=== PATIENT | male | born 1950 | race Caucasian/White ===

== ENCOUNTER 2019-11-25 19:33 | Inpatient (IN) | payer OTHER, MEDICAID ==
[~2019-11-25] VITALS: Ht 182.9 cm; Wt 95.0 kg
[2019-11-25 19:33] VITALS: BP_SYST 118
--- NOTE | 2019-11-25 19:48 | NUR ---
Patient to ER bed 8 to gown for evaluation. Side rails up.
--- NOTE | 2019-11-25 19:55 | NUR ---
Dr. Prince bedside for pt eval
[2019-11-25] MEDS ORDERED: ATOR10TA68 PO (19:59)
--- NOTE | 2019-11-25 19:59 | NUR ---
Pt passed jello swallow eval at bedside with Dr. Niki hall
[2019-11-25] MEDS ORDERED: ESCI10TA PO (20:00)
[2019-11-25] MEDS ORDERED: CARB200T2 PO (20:00)
[2019-11-25] MEDS ORDERED: LACT10SO6 PO (20:01)
--- NOTE | 2019-11-25 20:01 | NUR ---
Pt BIBA from [facility] to ED C/O increased ammonia levels, recorded at 93 at the facility. Patient does not know why he is here. VSS no s/s of acute distress Resting on gurney rails up
[2019-11-25] MEDS ORDERED: LEVE500T53 PO (20:02)
[2019-11-25] MEDS ORDERED: LOSA50TA3 PO (20:02)
[2019-11-25] MEDS ORDERED: PHEN100C4 PO (20:03)
[2019-11-25] MEDS ORDERED: THIA100T73 PO (20:04)
[2019-11-25] MEDS ORDERED: OLAN5TAB3 PO (20:04)
[2019-11-25 20:17] LABS: BASOPHILS # (AUTO) 0.1 K/uL (0.0-0.2); BASOPHILS % (AUTO) 0.5 % (0.0-2.0); EOSINOPHILS # (AUTO) 0.1 K/uL (0.0-0.4); EOSINOPHILS % (AUTO) 0.7 % (0.0-4.0); HEMATOCRIT 35.6 % (36-48); HEMOGLOBIN 12.1 g/dL (12.0-16.0); MEAN CORPUSCULAR HEMOGLOBIN 31 pg (27-31); MEAN CORPUSCULAR HGB CONC 34 % (32-36); MEAN CORPUSCULAR VOLUME 90 fL (79.0-98.0); MONOCYTES # (AUTO) 1.1 K/uL (0.0-1.0); MONOCYTES % (AUTO) 10.3 % (1.7-9.3); NEUTROPHILS # (AUTO) 8.6 K/uL (1.8-7.7); NEUTROPHILS % (AUTO) 79.5 % (40.0-70.0); PLATELET COUNT (AUTO) 262 K/uL (130-430); RED BLOOD CELL COUNT(AUTO) 3.95 MIL/uL (4.2-6.2); RED CELL DISTRIBUTION WIDTH 13.2 % (9.0-15.0); WHITE BLOOD COUNT (AUTO) 10.8 K/uL (4.8-10.8)
[2019-11-25 20:35] LABS: BILIRUBIN,URINE 1+ (NEGATIVE); CLARITY/URINE CLOUDY (CLEAR); COLOR,URINE YELLOW (YELLOW); GLUCOSE,URINE NEGATIVE (NEGATIVE); KETONES,URINE NEGATIVE (NEGATIVE); LEUKOCYTE ESTERASE ,URINE 3+ (NEGATIVE); NITRITE, URINE NEGATIVE (NEGATIVE); PROTEIN URINE NEGATIVE (NEGATIVE)
[2019-11-25 20:35] LABS: ANION GAP 7 (5-15); CALCIUM 8.3 mg/dL (8.4-11.0); CHLORIDE 95 mmol/L (98-107); GLUCOSE 127 mg/dL (70-99); POTASSIUM 3.9 mmol/L (3.5-5.1); SODIUM SERUM 128 mmol/L (136-145); UREA NITROGEN, BLOOD 13 mg/dL (8-21)
[2019-11-25 20:38] LABS: PROTHROMBIN TIME 10.3 SECS (9.5-12.5)
[2019-11-25 20:39] LABS: GFR AFRICAN AMERICAN 107 mL/min (>90)
[2019-11-25 20:47] LABS: BARBITURATE, URINE POSITIVE (NEG <=200); BENZODIAZEPINE, URINE NEGATIVE (NEG <=150); CANNABINOID, URINE NEGATIVE (NEG <=50); COCAINE, URINE NEGATIVE (NEG <=150); METHAMPHETAMINES SCREEN,URINE NEGATIVE (NEG <=500); OPIATE, URINE NEGATIVE (NEG <=100); PHENCYCLIDINE SCREEN,URINE NEGATIVE (NEG <=25); UR TRICYCLIC ANTIDEPRESSANTS NEGATIVE (NEG <=300); URINE AMPHETAMINE NEGATIVE (NEG <=500); URINE METHADONE NEGATIVE (NEG <=200); URINE OXYCODONE SCREEN NEGATIVE (NEG <=100); URINE PROPOXYPHENE SCREEN NEGATIVE (NEG <=300)
--- NOTE | 2019-11-25 20:50 | NUR ---
Dr. Prince bedside for pt update on abnormal labs
[2019-11-25 20:51] LABS: BLOOD, URINE TRACE (NEGATIVE)
[2019-11-25 20:53] LABS: ALANINE AMINOTRANSFERASE 19 U/L (12-78); ALBUMIN 3.1 g/dL (3.4-4.8); ASPARTATE AMINOTRANSFERASE 14 U/L (10-37); FREE T4 (FREE THYROXINE) 0.8 ng/dl (0.8-1.5); THYROID STIMULATING HORMONE 1.48 uIu/mL (0.36-3.74); TOTAL BILIRUBIN 0.2 mg/dL (0.0-1.0)
[2019-11-25 20:56] LABS: BACTERIA,URINE MANY /HPF (None Seen); RBC,URINE 0-3 /HPF (0-3); WBC,URINE >100 /HPF (0-3)
[2019-11-25 21:00] LABS: ALCOHOL, BLOOD < 3 mg/dL (<10)
[2019-11-25] MEDS ORDERED: [UNRECOGNIZED DRUG - CODE] PO (21:42)
[2019-11-25] MEDS ORDERED: cefTRIAXone 1 GM IVPB PREMIX 50 ML IV ONE (21:45)
--- NOTE | 2019-11-25 22:02 | NUR ---
VSS no s/s of acute distress Resting on gurney rails up
--- NOTE | 2019-11-25 22:59 | NUR ---
IV Med therapy well tolerated
[2019-11-25 23:55] VITALS: BP_SYST 149
--- NOTE | 2019-11-25 23:55 | NUR ---
Patient will be admitted to care of Dr. Johnson. Admitted to Tele unit. Will go to room 118A. Belongings list completed. Complete and up to date summary report printed. SBAR report to be given at bedside with opportunity for questions.
--- NOTE | 2019-11-25 23:55 | NUR ---
ADMISSION NOTE Received patient from ER via gurney. Patient admitted with diagnosis of . Patient is awake, alert, oriented X 1. Patient oriented to hospital room, call light, toileting, pain management and safety-teach back done. Patient informed that OTTO will be HIS nurse and that their room number is 118A. Personal belongings checked and Belongings List documented. Call light within reach.
--- NOTE | 2019-11-25 23:55 | NUR ---
Transfer to Telemetry via ACLS protocol. Licensed nurse present. IV present no signs or symptoms of infiltration.
--- NOTE | 2019-11-26 | NUR ---
Opening notes Patient is resting in bed. No signs of distress noted. Breathing even and unlabored. IV patent and intact, saline locked. Patient refuses to take regular clothes and shoes off. Unable to provide full skin assessment, due to patient refusing. Oriented patient to room and call light. Call light with the patient, safety precautions in place.
--- NOTE | 2019-11-26 02:00 | NUR ---
Resting Patient is resting in bed, no signs of distress noted. Breathing even and unlabored. Patient spits over side rails. Oriented patient to not do that and spit in provided emesis bag. Patient continues to spit over railing and onto the floor. Chucks was placed in the floor. Call light with the patient. Safety precautions in place.
--- NOTE | 2019-11-26 04:30 | NUR ---
IV removed by patient. Catheter tip intact and discarded. Patient refusing to have IV reinserted. Patient also removed telemetry box and refusing to have it replaced. Will attempt to reinsert/replace at later time. No signs of distress noted. Breathing even and unlabored. Call light with the patient. Safety precautions in place.
[2019-11-26] MEDS: NORMAL SALINE 5 ML DISP.SYRIN IVF SCH ×3 (06:00→22:00)
--- NOTE | 2019-11-26 06:50 | NUR ---
Closing notes Patient resting in bed. No signs of distress noted. Breathing even and unlabored. Patient still refusing IV. Hygiene care provided and patient changed into hospital gown and telemetry leads placed. All needs met throughout the shift. Call light with the patient. Safety precautions in place. Will endorse care to day shift RN.
[2019-11-26 07:11] LABS: BASOPHILS % (AUTO) 0.4 % (0.0-2.0); EOSINOPHILS # (AUTO) 0.1 K/uL (0.0-0.4); EOSINOPHILS % (AUTO) 0.9 % (0.0-4.0); HEMATOCRIT 38.1 % (36-54); HEMOGLOBIN 12.9 g/dL (14.0-18.0); LYMPHOCYTES # (AUTO) 1.2 K/uL (1.0-5.5); LYMPHOCYTES % (AUTO) 10.3 % (20.5-51.5); MEAN CORPUSCULAR HEMOGLOBIN 31 pg (27-31); MEAN CORPUSCULAR HGB CONC 34 % (32-36); MEAN CORPUSCULAR VOLUME 90 fL (79.0-98.0); MONOCYTES # (AUTO) 1.4 K/uL (0.0-1.0); MONOCYTES % (AUTO) 11.8 % (1.7-9.3); NEUTROPHILS # (AUTO) 8.9 K/uL (1.8-7.7); NEUTROPHILS % (AUTO) 76.6 % (40.0-70.0); PLATELET COUNT (AUTO) 276 K/uL (130-430); RED BLOOD CELL COUNT(AUTO) 4.22 MIL/uL (4.2-6.2); RED CELL DISTRIBUTION WIDTH 13.2 % (9.0-15.0); WHITE BLOOD COUNT (AUTO) 11.6 K/uL (4.8-10.8)
[2019-11-26 07:27] LABS: ALBUMIN 3.1 g/dL (3.4-4.8); CALCIUM 8.7 mg/dL (8.4-11.0); CREATININE 0.68 mg/dL (0.55-1.30); POTASSIUM 3.8 mmol/L (3.5-5.1); TOTAL BILIRUBIN 0.4 mg/dL (0.0-1.0)
[2019-11-26 08:06] VITALS: BP_SYST 123
[2019-11-26] MEDS: LACTULOSE 20 GM/30 ML UDC PO SCH ×4 (08:51→22:17)
--- NOTE | 2019-11-26 09:50 | NUR ---
Nutrition Update Casey Scale 16 noted. Pt admitted for hyponatremia, hepatic encephalopathy Diet: Regular, Mech Soft BMI: 28.4 kg/m2 RD to follow per nutrition care standards.
[2019-11-26 12:54] VITALS: BP_SYST 124
[2019-11-26] MEDS ORDERED: THIAMINE HCL 100 MG TABLET PO ONE (13:00)
[2019-11-26] MEDS ORDERED: LOSARTAN POTASSIUM 50 MG TABLET (COZAAR) PO ONE (13:00)
[2019-11-26] MEDS ORDERED: CITALOPRAM HYDROBROMIDE 20 MG TABLET PO ONE (13:15)
--- NOTE | 2019-11-26 13:30 | NUR ---
INFECTIOUS CONSULT DR SWARTZ WAS HERE AND MADE AWARE OF CONSULT.
--- NOTE | 2019-11-26 14:28 | NUR ---
PATIENT REFUSED TO BE CONNECTED TO TELE MONITOR. PULL OUT ALL THE CORDS. PT REFUSED ALSO SOME OF THE MEDS OFFERED EARLIER. Addendum: 11/26/19 at 1430 by Cruz Apple RN ALSO REFUSED TO HAVE IV ACCESS STARTED.
[2019-11-26 16:58] VITALS: BP_SYST 120
[2019-11-26] MEDS: PHENYTOIN 100 MG CAPSULE PO SCH ×2 (18:15→22:18)
--- NOTE | 2019-11-26 18:19 | NUR ---
PT took 1500 pm medication. Addendum: 11/26/19 at 1820 by Cruz Apple RN patient refused earlier.
--- NOTE | 2019-11-26 18:28 | NUR ---
PATIENT REFUSED CT SCAN AGAIN TODAY PER SALES MARKETING DIRECTOR.
--- NOTE | 2019-11-26 18:30 | NUR ---
CLOSING: PT HAS BEEN STABLE, THE WHOLE SHIFT, NO UNTOWARD INCIDENT. PT REFUSED MEDICATIONS DELAYING SOMETIME MEDICATION ADMINISTRAION, PT ALSO REFUSED CT OF THE HEAD AND TELEMETRY. IS AWARE. WILL ENDORSE TO NIGHT NURSE.
--- NOTE | 2019-11-26 19:30 | NUR ---
Opening notes Received report. Patient is resting in bed. No signs of distress noted. Breathing even and unlabored. Patient refusing IV and telemetry monitoring box. MD aware. No needs at this time. Call light with the patient. Safety precautions in place.
[2019-11-26 20:00] VITALS: BP_SYST 119
--- NOTE | 2019-11-26 20:02 | NUR ---
CONSULTATION PAGED/CALLED Reason for Consultation: ENCEPHALOPATHY Person Who was Notified: JAMIL Consulting Physician: TIERA ANDREW Ordering Physician: DR. TOBIN
[2019-11-26] MEDS: RIFAXIMIN 550 MG TABLET PO SCH ×2 (21:00→22:18)
--- NOTE | 2019-11-26 22:00 | NUR ---
Medications given. Educated the action and side effects of medications. Patient tolerated well. No signs of distress noted. Call light with the patient. Safety precautions in place.
[2019-11-26] MEDS: OLANZapine 5 MG TABLET PO SCH (22:17)
[2019-11-26] MEDS: ATORVASTATIN 10 MG TABLET PO SCH (22:18)
[2019-11-26] MEDS: levETIRAcetam 500 MG TABLET PO SCH (22:18)
--- NOTE | 2019-11-27 00:30 | NUR ---
Hygiene care provided. Patient uncooperative. Informed patient that he should not sit on wet clothes and linens, which could lead to skin breakdown. Patient agreed then patient stated to "leave me alone, I want to sleep." Call light with the patient. Safety precautions in place.
--- NOTE | 2019-11-27 02:30 | NUR ---
Sleeping Patient sleeping. No signs of distress noted. Breathing even and unlabored. Call light with the patient. Safety precautions in place.
--- NOTE | 2019-11-27 04:14 | NUR ---
Sleeping No signs of distress noted. Breathing even and unlabored. no needs. Call light with the patient. Safety precautions in place.
[2019-11-27 04:36] VITALS: BP_SYST 141
[2019-11-27] MEDS: NORMAL SALINE 5 ML DISP.SYRIN IVF SCH ×3 (05:14→21:00)
--- NOTE | 2019-11-27 06:28 | NUR ---
Closing notes Patient resting in bed. No signs of distress noted. Breathing even and unlabored. Patient still refusing IV and telemetry monitoring. All needs met throughout the shift. Call light with the patient. Safety precautions in place. Will endorse care to day shift RN.
[2019-11-27 07:55] VITALS: BP_SYST 128
--- NOTE | 2019-11-27 08:00 | NUR ---
NOTE Pt sitting up in bed eating his breakfast. Pt has no IV or tele unit (MD aware). No difficulty swallowing or eating observed at this time. Call light within reach. No needs noted at this time.
[2019-11-27] MEDS: RIFAXIMIN 550 MG TABLET PO SCH ×3 (08:07→20:54)
[2019-11-27] MEDS: THIAMINE HCL 100 MG TABLET PO SCH (08:08)
[2019-11-27] MEDS: PHENYTOIN 100 MG CAPSULE PO SCH ×3 (08:08→20:51)
[2019-11-27] MEDS: LOSARTAN POTASSIUM 50 MG TABLET (COZAAR) PO SCH (08:09)
[2019-11-27] MEDS: CITALOPRAM HYDROBROMIDE 20 MG TABLET PO SCH (08:09)
[2019-11-27] MEDS: LACTULOSE 20 GM/30 ML UDC PO SCH ×3 (08:17→20:51)
--- NOTE | 2019-11-27 11:00 | NUR ---
Note Pt asleep in bed. No needs noted at this time. No SOB/resp distress or pain/discomfort noted all shift. Call light within reach.
[2019-11-27 12:00] VITALS: BP_SYST 111
--- NOTE | 2019-11-27 14:00 | NUR ---
Note Pt finished lunch and now resting in bed. Denies any needs at this time. Call light within reach.
--- NOTE | 2019-11-27 16:10 | NUR ---
Note Pt asleep. No needs noted. No SOB/resp distress or pain/discomfort noted at this time. Call light within reach.
[2019-11-27 16:19] VITALS: BP_SYST 114
--- NOTE | 2019-11-27 19:00 | NUR ---
Note Pt resting in bed. Report given to NOC RN for continuation of care. Pt was checked on q1' and PRN all shift for needs and care. Call light within reach.
--- NOTE | 2019-11-27 19:20 | NUR ---
OPENING NOTES Pt and endorsement received from day shift nurse. Pt is awake, alert and lying in bed. No complains of pain at this time. No signs of acute distress or SOB noted. Encouraged to use call light when needed. Safety precautions in place with 3 side rails up, wheels locked, bed alarm on and in lowest level. Call light with pt. Will continue to monitor.
[2019-11-27 20:49] VITALS: BP_SYST 118
[2019-11-27] MEDS: OLANZapine 5 MG TABLET PO SCH (20:51)
[2019-11-27] MEDS: ATORVASTATIN 10 MG TABLET PO SCH (20:51)
[2019-11-27] MEDS: levETIRAcetam 500 MG TABLET PO SCH (20:51)
--- NOTE | 2019-11-27 21:00 | NUR ---
ROUNDS All due meds given and pt tolerated well. Aspiration precautions maintained with head elevated at 45 degrees. No complains of pain and no signs of acute distress noted. Safety precautions in place and call light with pt. Will continue to monitor.
--- NOTE | 2019-11-28 02:38 | NUR ---
ROUNDS Pt is resting in bed with both eyes closed, with visible chest rise and fall with non-labored breathing noted. No signs of acute distress or SOB noted. No needs at this time. Safety precautions in place and call light with pt. Will continue to monitor. .
--- NOTE | 2019-11-28 04:15 | NUR ---
ROUNDS Pt is resting in bed with both eyes closed, with visible chest rise and fall with non-labored breathing noted. No complains of pain and no signs of acute distress noted. Safety precautions in place and call light with pt. Will continue to monitor. .
[2019-11-28] MEDS: NORMAL SALINE 5 ML DISP.SYRIN IVF SCH ×3 (05:49→21:26)
[2019-11-28 06:17] LABS: HEPATITIS A AB, IgM Negative (Negative); HEPATITIS B CORE AB, IgM Negative (Negative); HEPATITIS B SURFACE AG Negative (Negative)
--- NOTE | 2019-11-28 06:18 | NUR ---
CLOSING NOTES Pt is resting in bed with both eyes closed, with visible chest rise and fall with non-labored breathing noted. No moaning or grimacing noted. No signs of acute distress or SOB noted. All needs attended throughout the shift. Safety precautions maintained with 3 side rails up, wheels locked, bed alarm on and in lowest level. Call light with pt. Will endorse to day shift nurse.
--- NOTE | 2019-11-28 07:52 | NUR ---
pt in bed, eating breakfast by himself, refused vitals at this time. will cont to monitor.
[2019-11-28] MEDS: THIAMINE HCL 100 MG TABLET PO SCH (08:54)
[2019-11-28] MEDS: PHENYTOIN 100 MG CAPSULE PO SCH ×3 (08:55→18:15)
[2019-11-28] MEDS: RIFAXIMIN 550 MG TABLET PO SCH ×2 (08:55→21:26)
[2019-11-28] MEDS: CITALOPRAM HYDROBROMIDE 20 MG TABLET PO SCH (08:55)
[2019-11-28] MEDS: LACTULOSE 20 GM/30 ML UDC PO SCH ×3 (08:55→18:16)
--- NOTE | 2019-11-28 08:55 | NUR ---
took some convincing before pt took am. meds. pt initially refused to take them.
[2019-11-28] MEDS: LOSARTAN POTASSIUM 50 MG TABLET (COZAAR) PO SCH (08:57)
[2019-11-28 12:56] VITALS: BP_SYST 104
--- NOTE | 2019-11-28 15:00 | NUR ---
pt refused 1500 medications, will try again later.
--- NOTE | 2019-11-28 15:33 | NUR ---
Discharge Planning: DCP faxed pt referral to [facility] (f [phone] p [phone]) DCP to follow up.
--- NOTE | 2019-11-28 16:21 | NUR ---
patient refused medications again. asked pt if he will take it dinner time. pt said yes. will offer at dinner time.
[2019-11-28 17:26] VITALS: BP_SYST 119
--- NOTE | 2019-11-28 18:41 | NUR ---
closing: pt has been stable the whole shift, still refusing meds on and off, refused nursing care also.
--- NOTE | 2019-11-28 19:28 | NUR ---
OPENING NOTES Pt and endorsement received from day shift nurse. Pt is resting in bed with both eyes closed, with visible chest rise and fall with non-labored breathing noted. No complains of pain at this time. No signs of acute distress or SOB noted. Encouraged to use call light when needed. Safety precautions in place with 3 side rails up, wheels locked, bed alarm on and in lowest level. Call light with pt. Will continue to monitor.
[2019-11-28 21:25] VITALS: BP_SYST 117
[2019-11-28] MEDS: ATORVASTATIN 10 MG TABLET PO SCH (21:26)
[2019-11-28] MEDS: levETIRAcetam 500 MG TABLET PO SCH (21:26)
[2019-11-28] MEDS: OLANZapine 5 MG TABLET PO SCH (21:26)
--- NOTE | 2019-11-28 21:30 | NUR ---
ROUNDS All due meds given and pt tolerated well. Aspiration precautions maintained with head elevated at 45 degrees. No complains of pain and no signs of acute distress noted. IVF infusing well. Safety precautions in place and call light with pt. Will continue to monitor. Addendum: 11/29/19 at 0201 by Oxana Sarkar RN No IVF site. Please disregard.
[2019-11-29] MEDS: NORMAL SALINE 5 ML DISP.SYRIN IVF SCH (05:47)
--- NOTE | 2019-11-29 10:17 | NUR ---
Discharge Planning: DCP returned call to [facility] (f [phone] p [phone]) DCP lm to follow up with getting room. Addendum: 11/29/19 at 1113 by Mable Moore DP DCP spoke to [facility] (f [phone] p [phone]) patient will go to [facility], transportation arranged with [facility] 1:00pm P/U BLS. nurse made aware patient packet taken to nurse station.
[2019-11-29] MEDS: LACTULOSE 20 GM/30 ML UDC PO SCH (10:31)
[2019-11-29] MEDS: RIFAXIMIN 550 MG TABLET PO SCH (10:31)
[2019-11-29] MEDS: LOSARTAN POTASSIUM 50 MG TABLET (COZAAR) PO SCH (10:32)
[2019-11-29] MEDS: PHENYTOIN 100 MG CAPSULE PO SCH (10:32)
[2019-11-29] MEDS: THIAMINE HCL 100 MG TABLET PO SCH (10:33)
[2019-11-29] MEDS: CITALOPRAM HYDROBROMIDE 20 MG TABLET PO SCH (10:33)
[2019-11-29 10:51] LABS: BASOPHILS % (AUTO) 0.3 % (0.0-2.0); EOSINOPHILS # (AUTO) 0.3 K/uL (0.0-0.4); EOSINOPHILS % (AUTO) 6.5 % (0.0-4.0); HEMATOCRIT 37.6 % (36-54); HEMOGLOBIN 12.7 g/dL (14.0-18.0); LYMPHOCYTES # (AUTO) 1.1 K/uL (1.0-5.5); LYMPHOCYTES % (AUTO) 22.1 % (20.5-51.5); MEAN CORPUSCULAR HEMOGLOBIN 31 pg (27-31); MEAN CORPUSCULAR HGB CONC 34 % (32-36); MEAN CORPUSCULAR VOLUME 91 fL (79.0-98.0); MONOCYTES # (AUTO) 0.6 K/uL (0.0-1.0); MONOCYTES % (AUTO) 11.7 % (1.7-9.3); NEUTROPHILS % (AUTO) 59.4 % (40.0-70.0); PLATELET COUNT (AUTO) 289 K/uL (130-430); RED BLOOD CELL COUNT(AUTO) 4.12 MIL/uL (4.2-6.2); RED CELL DISTRIBUTION WIDTH 13.2 % (9.0-15.0)
[2019-11-29 10:56] VITALS: BP_SYST 102
[2019-11-29 11:03] LABS: CALCIUM 8.4 mg/dL (8.4-11.0); CREATININE 0.56 mg/dL (0.55-1.30); POTASSIUM 3.9 mmol/L (3.5-5.1)
[2019-11-29 11:07] VITALS: BP_SYST 102
--- NOTE | 2019-11-29 11:58 | NUR ---
REPORT: [facility]
--- NOTE | 2019-11-29 12:14 | NUR ---
Family Notification: Called [facility]ink, voicemail is full, Mary Girard, not answering the call.
--- NOTE | 2019-11-29 13:26 | NUR ---
PATIENT DISCHARGED TO [facility] WITH DISCHARGE INSTRUCTION, MEDICATION RECONCILIATION , [facility]IENT[facility]S [facility] AT 1320. PATIENT ALERT AND CONFUSED. PATIENT STABLE. VSS.
== END 2019-11-29 13:20 | DRG 441 ==
LOC: EDSEX 19:33 → SED 19:33 → STU 23:11 → SMU 11-28 13:11
PROVIDERS: ADMIT Internal Medicine; ATTEND Internal Medicine
DX: K72.90 Hepatic failure, unspecified without coma (principal); G93.41 Metabolic encephalopathy; E87.1 Hypo-osmolality and hyponatremia; F20.0 Paranoid schizophrenia; N39.0 Urinary tract infection, site not specified; K74.60 Unspecified cirrhosis of liver; E11.9 Type 2 diabetes mellitus without complications; E78.5 Hyperlipidemia, unspecified; F03.90 Unspecified dementia, unspecified severity, without behavioral disturbance, psychotic disturbance, mood disturbance, and anxiety; F31.9 Bipolar disorder, unspecified; G40.909 Epilepsy, unspecified, not intractable, without status epilepticus; I11.9 Hypertensive heart disease without heart failure; Z91.19 Patient's noncompliance with other medical treatment and regimen
CPT/HCPCS: 36415; 80048; 80053; 80074; 80307; 81000-TC; 82140-TC; 84439; 84443-TC; 84484; 85025; 85610-TC; 85730-TC; 87081; 87086; 93005; 96365; 99285; G0378; G0482; J0696

== ENCOUNTER 2022-01-20 00:40 | Emergency (ER) | payer OTHER, MEDICAID ==
[~2022-01-20] VITALS: Ht 185.4 cm; Wt 77.1 kg
[~2022-01-20 00:40] MED LIST: ATOR10TA68 PO; CARB200T2 PO; ESCI10TA PO; LACT10SO6 PO; LEVE500T21 PO; LOSA50TA3 PO; OLAN5TAB3 PO; PHEN100C4 PO; THIA100T73 PO; [UNRECOGNIZED DRUG - CODE] PO
[2022-01-20 00:52] VITALS: BP_SYST 135
--- NOTE | 2022-01-20 00:52 | NUR ---
Patient to ER bed 5 to gown for evaluation. Side rails up. Report given to Bret JAEGER(kristine).
[2022-01-20 02:08] LABS: HEMATOCRIT 39.1 % (36-54); MEAN CORPUSCULAR HEMOGLOBIN 31 pg (27-31); WHITE BLOOD COUNT (AUTO) 4.6 K/uL (4.8-10.8)
[2022-01-20 02:24] LABS: BASOPHILS # (AUTO) 0.1 K/uL (0.0-0.2); BASOPHILS % (AUTO) 1.2 % (0.0-2.0); EOSINOPHILS # (AUTO) 0.3 K/uL (0.0-0.4); EOSINOPHILS % (AUTO) 5.6 % (0.0-4.0); HEMOGLOBIN 13.5 g/dL (14.0-18.0); LYMPHOCYTES # (AUTO) 1.6 K/uL (1.0-5.5); LYMPHOCYTES % (AUTO) 34.2 % (20.5-51.5); MEAN CORPUSCULAR HGB CONC 34 % (32-36); MEAN CORPUSCULAR VOLUME 90 fL (79.0-98.0); MONOCYTES # (AUTO) 0.5 K/uL (0.0-1.0); MONOCYTES % (AUTO) 11.2 % (1.7-9.3); NEUTROPHILS # (AUTO) 2.2 K/uL (1.8-7.7); NEUTROPHILS % (AUTO) 47.8 % (40.0-70.0); PLATELET COUNT (AUTO) 229 K/uL (130-430); RED BLOOD CELL COUNT(AUTO) 4.34 MIL/uL (4.2-6.2); RED CELL DISTRIBUTION WIDTH 13.5 % (9.0-15.0)
[2022-01-20 03:31] LABS: ANION GAP 8 (5-15); CALCIUM 8.4 mg/dL (8.4-11.0); CHLORIDE 98 mmol/L (98-107); CREATININE 0.78 mg/dL (0.55-1.30); GLUCOSE 96 mg/dL (70-99); POTASSIUM 4.4 mmol/L (3.5-5.1); SODIUM SERUM 132 mmol/L (136-145); UREA NITROGEN, BLOOD 15 mg/dL (8-21)
[2022-01-20 03:33] LABS: GFR AFRICAN AMERICAN 127 mL/min (>90)
[2022-01-20 03:36] LABS: ALANINE AMINOTRANSFERASE 21 U/L (12-78); ALBUMIN 3.6 g/dL (3.4-4.8); ASPARTATE AMINOTRANSFERASE 10 U/L (10-37); CHOLESTEROL 191 mg/dL (<200); HDL CHOLESTEROL 63 mg/dL (>45); LDL CHOLESTEROL 105 mg/dL (<100); TOTAL BILIRUBIN 0.3 mg/dL (0.0-1.0); TRIGLYCERIDES 56 mg/dL (30-150)
[2022-01-20 03:39] LABS: BILIRUBIN,URINE NEGATIVE (NEGATIVE); BLOOD, URINE NEGATIVE (NEGATIVE); CLARITY/URINE CLEAR (CLEAR); COLOR,URINE YELLOW (YELLOW); GLUCOSE,URINE NEGATIVE (NEGATIVE); KETONES,URINE NEGATIVE (NEGATIVE); LEUKOCYTE ESTERASE ,URINE 3+ (NEGATIVE); NITRITE, URINE POSITIVE (NEGATIVE); PH,URINE 6.5 (5.0-8.0); PROTEIN URINE NEGATIVE (NEGATIVE); UROBILINOGEN,URINE 0.2 (0.2-1.0)
[2022-01-20 03:41] LABS: ALCOHOL, BLOOD < 3 mg/dL (<10)
[2022-01-20 03:48] LABS: BARBITURATE, URINE POSITIVE (NEG <=200); BENZODIAZEPINE, URINE NEGATIVE (NEG <=150); CANNABINOID, URINE NEGATIVE (NEG <=50); COCAINE, URINE NEGATIVE (NEG <=150); METHAMPHETAMINES SCREEN,URINE NEGATIVE (NEG <=500); OPIATE, URINE NEGATIVE (NEG <=100); PHENCYCLIDINE SCREEN,URINE NEGATIVE (NEG <=25); UR TRICYCLIC ANTIDEPRESSANTS NEGATIVE (NEG <=300); URINE AMPHETAMINE NEGATIVE (NEG <=500); URINE METHADONE NEGATIVE (NEG <=200); URINE OXYCODONE SCREEN NEGATIVE (NEG <=100); URINE PROPOXYPHENE SCREEN NEGATIVE (NEG <=300)
[2022-01-20 03:57] LABS: ACETAMINOPHEN < 1 ug/mL (1-30)
[2022-01-20 04:07] LABS: RBC,URINE 0-3 /HPF (0-3)
[2022-01-20 04:08] LABS: BACTERIA,URINE FEW /HPF (None Seen); CALCIUM OXALATE CRYSTALS,UR None Seen /HPF (None Seen); CALCIUM PHOSPHATE CRYSTALS,UR None Seen /HPF (None Seen); TRICHOMONAS,URINE None Seen /HPF (None Seen); YEAST,URINE None Seen /HPF (None Seen)
[2022-01-20 04:09] LABS: COARSE GRANULAR CASTS,URINE None Seen /LPF (None Seen); FINE GRANULAR CASTS,URINE None Seen /LPF (None Seen); HYALINE CASTS, URINE None Seen /LPF (None Seen); OTHER CASTS, URINE None Seen /LPF (None Seen); OTHER CRYSTALS,URINE None Seen /HPF (None Seen); TRIPLE PHOSPHATE CRYSTAL,UR None Seen /HPF (None Seen); URIC ACID CRYSTALS,URINE None Seen /HPF (None Seen); URINE AMORPHOUS PHOSPHATES None Seen /HPF (None Seen); URINE AMORPHOUS URATE None Seen /HPF (None Seen); WAXY CASTS,URINE None Seen /LPF (None Seen)
[2022-01-20 04:10] LABS: MUCUS,URINE 1+ /LPF (None Seen)
[2022-01-20] MEDS ORDERED: cefTRIAXone 1 GM in LIDOCAINE 1%, 20 ML MDV 2.1 ML IM ONE (04:15)
[2022-01-20] MEDS ORDERED: cefTRIAXone 1 GM in D5W 50 ML IV ONE (04:30)
[2022-01-20] MEDS ORDERED: CEPH-548 PO (04:31)
--- NOTE | 2022-01-20 04:38 | NUR ---
Report given to HEIDE Spears of [facility] at this time.
[2022-01-20] MEDS ORDERED: cefTRIAXone 1 GM VIAL ONE (05:11)
[2022-01-20] MEDS ORDERED: LIDOCAINE 1%, 20 ML MDV 20 ML ONE (05:13)
[2022-01-20 05:55] VITALS: BP_SYST 140
--- NOTE | 2022-01-20 06:00 | NUR ---
Patient to be transferred to [facility]. Is being transferred due to higher level of care. Receiving facility has accepting physician and available space. ER physician has signed transfer form. Patient or responsible democrat has agreed to transfer and signed form. Patient belongings inventoried and will be sent with patient. Copy of nursing notes, lab reports, EKG, Physicians Orders and X-rays to be sent with patient. Report called to Tory at receiving facility. Receiving physician is Dr. Anamika Valle. Ambulance service has been called for transfer. ETA is now.
== END 2022-01-20 06:00 ==
LOC: SED 00:40
DX: F05 Delirium due to known physiological condition (principal); N39.0 Urinary tract infection, site not specified; E11.9 Type 2 diabetes mellitus without complications; R56.9 Unspecified convulsions; I10 Essential (primary) hypertension; Z20.822 Contact with and (suspected) exposure to COVID-19
CPT/HCPCS: 36415; 80053; 80061; 80307; 81000; 83036; 85025; 87081; 87086; 87426; 96374; 99284; G0480; G0481; G0482; J0696; J2001